=== PATIENT | male | born 1965 | race Caucasian/White ===

== ENCOUNTER 2020-06-06 16:21 | Emergency (ER) | payer BC, SELFPAY ==
[2020-06-06 16:33] VITALS: BP 213/118; PULSE 106; RESP 13; TEMP 36.1; O2SAT 98
--- NOTE | 2020-06-06 16:42 | ECG_ITS ---
Measurements Intervals [place] Rate: 101 P: 67 AL: 155 QRS: 25 QRSD: 98 T: 55 QT: 323 QTc: 420 Interpretive Statements SINUS TACHYCARDIA EARLY PRECORDIAL R/S TRANSITION BASELINE WANDER- I, II, III, AVL, AVF, V3 BORDERLINE ECG Electronically Signed On 06-06-2020 18:09:10 [employer] by Anthony Rodrigez D.O.
[2020-06-06 16:58] LABS: Basophils Percent Auto 0.3 % (0.2-1.2); Eosinophils Absolute Auto 0.2 K/mm3 (0-0.3); Eosinophils Percent Auto 1.3 % (0-4.4); Hemoglobin 16.5 g/dL (14.0-18.0); Immature Granulocyte Absolute 0.04 K/mm3 (0.00-0.031); Immature Granulocyte Percent A 0.3 % (0-0.5); Lymphocytes Absolute Auto 2.83 K/mm3 (0.9-3.2); Lymphocytes Percent Auto 20.6 % (18.3-44.2); Mean Corpuscular HGB Conc 35.1 g/dl (32-36); Mean Corpuscular Hemoglobin 29.8 pg (26-34); Mean Platelet Volume 9.9 fl (7.4-10.4); Monocytes Absolute Auto 0.9 K/mm3 (0.1-0.6); Monocytes Percent Auto 6.6 % (2.6-8.5); Neutrophils Absolute Auto 9.7 K/mm3 (1.3-6.7); Neutrophils Percent Auto 70.9 % (45.5-73.1); Platelet Count Result 272 k/mm3 (150-375); Red Blood Count 5.53 M/mm3 (4.6-6.20); Red Cell Distribution Width 12.8 % (11.5-14.5); White Blood Count 13.7 K/mm3 (4.5-10.0)
[2020-06-06 17:17] VITALS: BP 152/89; PULSE 90; RESP 16; O2SAT 97
[2020-06-06 17:26] LABS: Alanine Aminotransferase 46 U/L (4-50); Albumin Level 4.5 g/dL (3.5-5.1); Alkaline Phosphatase 56 U/L (38-126); Anion Gap 9 mmol/L (8-16); Aspartate Amino Transferase 32 U/L (17-59); Bilirubin,Total 0.5 mg/dL (0.2-1.3); Blood Urea Nitrogen 13 mg/dL (9-20); Calcium 9.7 mg/dL (8.4-10.2); Carbon Dioxide 26 mmol/L (22-30); Chloride 101 mmol/L (98-107); Estimated CRCL calculation 119 ml/min; Estimated Glomerular Filt Rate > 60; Glucose 103 mg/dL (75-110); Potassium 4.2 mmol/L (3.4-5.0); Sodium 136 mmol/L (137-145)
[2020-06-06 17:44] VITALS: BP 172/95; PULSE 93; RESP 22; O2SAT 97
--- NOTE | 2020-06-06 18:31 | PC.NURSE ---
Called lab to add on Trop I
[2020-06-06 18:43] VITALS: BP 157/90; PULSE 88; RESP 17; O2SAT 98
[2020-06-06 18:53] LABS: Add Urine Microscopic? NO; Appearance Urine Clear (Clear); Bilirubin Urine Negative (Negative); Blood Urine Negative (Negative); Color Urine Yellow (Yellow); Glucose Urine UA Negative (Negative); Ketones Urine Negative (Negative); Leukocyte Esterase Ur Negative LEU/UL (Negative); Nitrate Urine Negative (Negative); Protein Urine Negative (Negative); Specific Grav Ur 1.014 (1.001-1.035); Urobilinogen Urine Negative mg/dL (<2.0)
[2020-06-06 19:00] LABS: Troponin I < 0.012 ng/mL (0.000-0.034)
--- NOTE | 2020-06-06 19:16 | ED.GENADULT ---
HPI - General Adult General Chief complaint: Recheck/Abnormal Lab/Rx <Renetta Mace PA-C - Last Filed: 06/06/20 19:22> Stated complaint: high blood pressure, sent from PMD <Renetta Mace PA-C - Last Filed: 06/06/20 19:22> Time Seen by Provider: 06/06/20 16:34 <Renetta Mace PA-C - Last Filed: 06/06/20 19:22> Source: patient <Renetta Mace PA-C - Last Filed: 06/06/20 19:22> Mode of arrival: ambulatory <Renetta Mace PA-C - Last Filed: 06/06/20 19:22> Limitations: no limitations <Renetta Mace PA-C - Last Filed: 06/06/20 19:22> History of Present Illness HPI narrative: Patient presents with chief complaint of being sent by Dr. Pantoja's office for reevaluation of hypertension that was noted in the office just prior to his arrival. Patient has a history of hypertension but has been off of his medication for a long time. Patient states that upon that time he was on benazepril and metoprolol when he was switched to lisinopril. Patient states lisinopril makes his heart feel funny at times he noticed that his blood pressure was elevated so he has been taking some of his 's blood pressure medication however he did not take any lisinopril today. Patient states that his blood pressure was as high as it was today over 200s/110s because he had just done a lot of yard work and drink 3 cups of coffee. Patient denies any headache, change in vision or hearing, difficulty urinating, nausea, vomiting, diarrhea. Patient dates he occasionally has muscle cramps but that is chronic and has been occurring for 2 to 3 days. Patient denies any palpitations or chest pain or shortness of breath. <Renetta Mace PA-C - Last Filed: 06/06/20 19:22> Related Data Home medications: Home Medications Medication Instructions Recorded Confirmed lisinopril 06/06/20 <Renetta Mace PA-C - Last Filed: 06/06/20 19:22> Allergies/adverse reactions: Allergies Allergy/AdvReac Type Severity Reaction Status Date / Time No Known Allergies Allergy Verified 06/06/20 16:36 <Renetta Mace PA-C - Last Filed: 06/06/20 19:22> Review of Systems Review of Systems: Narrative: CONSTITUTIONAL: Denies fever, chills, or sweats. EYES: Denies visual changes, redness, or discharge. ENT: Denies rhinorrhea, congestion, sore throat, or otalgia. CARDIOVASCULAR: Reports elevated blood pressure denies chest pain, palpitations, or edema. RESPIRATORY: denies cough or dyspnea. GASTROINTESTINAL: Denies abdominal pain, nausea, vomiting, or diarrhea. GENITOURINARY: Denies dysuria or hematuria. SKIN: Denies rash or itching. MUSCULOSKELETAL: Reports muscle pain denies back pain, joint pain, or myalgia. NEUROLOGIC: Denies headache, numbness, dizziness, or weakness. PSYCHIATRIC: Denies anxiety or depression. <Renetta Mace PA-C - Last Filed: 06/06/20 19:22> [facility] Social History Social History: Social History Gender identity (if verbalized by the patient): Male <Renetta Mace PA-C - Last Filed: 06/06/20 19:22> Exam Narrative: Exam Narrative: GENERAL: Well-appearing, well-nourished, and in no acute distress. Patient smiling and talking normally and joking. Patient does not appear to be any discomfort. HEAD: Normocephalic, atraumatic. EYES: PERRLA and EOMI. CHEST: Clear to auscultation. No respiratory distress. No wheezes rales or rhonchi HEART: Regular rate and rhythm. No murmur heard. Normal peripheral pulses. ABDOMEN: Soft, nontender, nondistended, normal active bowel sounds. EXTREMITIES: No pain with palpation of extremities. Normal range of motion. No edema. SKIN: Warm, dry, no rash. NEURO: No focal deficits. Alert and oriented x3. PSYCH: Normal mood and affect. <Renetta Mace PA-C - Last Filed: 06/06/20 19:22> Course Vital Signs Vital signs: Vital Signs Temperature 97 F L 06/06/20 16:33 Pulse Rate 106 H 06/06/20 16:33 Respiratory Rate 13 06/06/20 16:33 Blood Pressure
[2020-06-06 19:18] VITALS: BP 156/87; PULSE 86; RESP 16; O2SAT 96
[2020-06-06 19:36] VITALS: BP 156/87; PULSE 87; RESP 17; O2SAT 98
== END 2020-06-06 19:37 | disposition home or self-care (01) ==
PROVIDERS: Physician Assistant; Emergency Provider General Practice; PCP Emergency Medicine
DX: I10 Essential (primary) hypertension (principal); R00.0 Tachycardia, unspecified
CPT/HCPCS: 36415; 80053; 81003; 84443; 84484; 85025; 93005; 99284

== ENCOUNTER 2020-08-26 08:01 | Outpatient (CLI) | payer BC, SELFPAY ==
--- NOTE | ~2020-08-26 | US_ITS ---
US arterial ankle brachial ind INDICATION: Femoral vascular disease TECHNIQUE: Segmental pressures and plethysmographic and Doppler waveforms of the brachial and lower e xtremity arteries were obtained. COMPARISON: None. FINDINGS: Right and left brachial artery pressures of 129 mm Hg and 135 mm Hg, respectively, are concordant (no rmal difference <= 30 mmHg). The right ankle-brachial index (ILANA) is 0.9 (normal >= 0.9-1.0). The right great toe-brachial index ( TBI) is 0.6 (normal >= 0.60). The left ILANA is 0.67. The left TBI is 0.31. IMPRESSION: 1. Diminished left ILANA and TBI, consistent with mild-moderate peripheral arterial disease. 2: Normal right ILANA and TBI. Reviewed, dictated and finalized at location B. ANALYST IMPRESSION: 1. Diminished left ILANA and TBI, consistent with mild-moderate peripheral arteri al disease. 2: Normal right ILANA and TBI.
== END 2020-08-26 08:02 | disposition home or self-care (01) ==
LOC: ANHIMG 08:04
PROVIDERS: PCP Physician Assistant; Visit Provider Physician Assistant
DX: I73.9 Peripheral vascular disease, unspecified (principal)
CPT/HCPCS: 93922